=== PATIENT | female | born 1960 | race Caucasian/White ===

== ENCOUNTER 2016-10-17 12:38 | Emergency (ER) | payer OTHER ==
[~2016-10-17] VITALS: Ht 157.5 cm; Wt 95.3 kg
[2016-10-17 12:44] VITALS: BP 138/84
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
== END 2016-10-17 14:56 ==
LOC: ERH 12:38
DX: S29.9XXA Unspecified injury of thorax, initial encounter (principal); M25.562 Pain in left knee; R51 Headache; V43.52XA Car driver injured in collision with other type car in traffic accident, initial encounter; Y93.9 Activity, unspecified; Y92.488 Other paved roadways as the place of occurrence of the external cause
CPT/HCPCS: 73562-LT